=== PATIENT | male | born 1950 | race Native Hawaiian/Other Pacific Islander ===

== ENCOUNTER 2016-10-18 12:39 | Outpatient (CLI) | payer OTHER ==
[~2016-10-18 12:39] MED LIST: AMOX875T8 PO; ASA LO-DOSE81 MG PO; CYCL10TA35 PO; DICL1GEL2 TOP; GABA100C2 PO; GABA300C2 PO; HYDR-2748 PO; HYDR25TA60 PO; LISI20TA11 PO; LORA10TA3 PO; MEDROL DOSEPAK4 MG OR; METO50TA27 PO; MOBIC7.5 M1 PO
[2016-10-18 13:03] LABS: PLATELET COUNT 284 K/uL (142-355)
[2016-10-18 13:30] LABS: POTASSIUM 4.2 mmol/L (3.6-5.2)
== END 2016-10-18 19:09 | disposition home or self-care (01) ==
LOC: RAD 12:39 → LABW 12:39
PROVIDERS: Family Medicine
DX: F41.8 Other specified anxiety disorders (principal); E55.9 Vitamin D deficiency, unspecified; I10 Essential (primary) hypertension; I73.89 Other specified peripheral vascular diseases; K21.9 Gastro-esophageal reflux disease without esophagitis; M25.512 Pain in left shoulder; J44.9 Chronic obstructive pulmonary disease, unspecified; R05 Cough
CPT/HCPCS: 80053; 80061; 81000; 82306; 83735; 84439; 84443; 84550; 85027

== ENCOUNTER 2017-01-13 11:12 | Outpatient (CLI) | payer OTHER ==
[2017-01-13 14:03] LABS: LDL CHOLESTEROL 79.5 mg/dL (0-99*)
== END 2017-01-13 12:15 | disposition home or self-care (01) ==
LOC: LABW 11:12
PROVIDERS: Nurse Practitioner Adult Health
DX: E78.2 Mixed hyperlipidemia (principal); Z79.899 Other long term (current) drug therapy; Z51.81 Encounter for therapeutic drug level monitoring
CPT/HCPCS: 36415; 80061; 80076

== ENCOUNTER 2017-03-09 09:45 | Outpatient (CLI) | payer OTHER ==
[2017-03-09 10:04] LABS: PLATELET COUNT 254 K/uL (142-355)
== END 2017-03-09 19:11 | disposition home or self-care (01) ==
LOC: LABW 09:45
PROVIDERS: Nurse Practitioner Adult Health
DX: Z01.810 Encounter for preprocedural cardiovascular examination (principal); I73.89 Other specified peripheral vascular diseases
CPT/HCPCS: 36415; 80053; 85027

== ENCOUNTER 2017-05-30 08:12 | Outpatient (CLI) | payer OTHER | END 2017-05-30 22:59 | disposition home or self-care (01) | LOC: US 08:12 | DX: I65.29 Occlusion and stenosis of unspecified carotid artery (principal) ==

== ENCOUNTER 2017-08-06 00:01 | Outpatient (CLI) | payer OTHER | END 2017-08-06 00:10 | disposition short-term general hospital (02) | LOC: AMB 00:01 | DX: R55 Syncope and collapse (principal); F10.129 Alcohol abuse with intoxication, unspecified | CPT/HCPCS: A0425; A0427 ==

== ENCOUNTER 2017-08-06 00:15 | Emergency (ER) | payer OTHER ==
[~2017-08-06] VITALS: Ht 180.3 cm; Wt 88.9 kg
[2017-08-06 00:31] LABS: PLATELET COUNT 398 K/uL (142-355)
[2017-08-06 00:38] LABS: POTASSIUM 3.3 mmol/L (3.6-5.2); SODIUM 139 mmol/L (136-145)
[2017-08-06 02:35] VITALS: BP 138/65; TEMP 97.6
== END 2017-08-06 02:36 | disposition home or self-care (01) ==
LOC: ED 00:15
DX: F10.129 Alcohol abuse with intoxication, unspecified (principal)
CPT/HCPCS: 36415; 80053; 80320; 81000; 82550; 84484; 85027; 96360; 99284

== ENCOUNTER 2017-09-08 09:56 | Emergency (ER) | payer OTHER ==
[~2017-09-08] VITALS: Ht 180.3 cm; Wt 86.2 kg
[2017-09-08 10:13] VITALS: TEMP 99.1
[2017-09-08 11:32] VITALS: BP 142/82
== END 2017-09-08 11:32 | disposition home or self-care (01) ==
LOC: ED 09:56
DX: M62.830 Muscle spasm of back (principal); X50.9XXA Other and unspecified overexertion or strenuous movements or postures, initial encounter; Y92.89 Other specified places as the place of occurrence of the external cause
CPT/HCPCS: 96372; 99283; J1100; J1885

== ENCOUNTER 2017-12-28 09:20 | Emergency (ER) | payer OTHER ==
[~2017-12-28] VITALS: Ht 180.3 cm; Wt 88.9 kg
[2017-12-28 10:11] LABS: PLATELET COUNT 268 K/uL (142-355)
[2017-12-28 10:25] LABS: POTASSIUM 4.6 mmol/L (3.6-5.2); SODIUM 142 mmol/L (136-145)
[2017-12-28 11:07] VITALS: BP 173/92; TEMP 98.4
== END 2017-12-28 11:07 | disposition home or self-care (01) ==
LOC: ED 09:20
DX: R55 Syncope and collapse (principal)
CPT/HCPCS: 80053; 81000; 84484; 85027; 93005; 99283

== ENCOUNTER 2018-01-10 10:04 | Outpatient (CLI) | payer OTHER | END 2018-01-10 21:32 | disposition home or self-care (01) | LOC: RESP 10:04 | DX: R55 Syncope and collapse (principal); I10 Essential (primary) hypertension | CPT/HCPCS: 93225 ==

== ENCOUNTER 2018-02-19 10:08 | Outpatient (CLI) | payer OTHER ==
[2018-02-19 10:31] LABS: PLATELET COUNT 246 K/uL (142-355)
[2018-02-19 11:24] LABS: POTASSIUM 4.5 mmol/L (3.6-5.2)
== END 2018-02-19 19:53 | disposition home or self-care (01) ==
LOC: LABW 10:08
PROVIDERS: Family Medicine
DX: I10 Essential (primary) hypertension (principal); I25.10 Atherosclerotic heart disease of native coronary artery without angina pectoris; I73.9 Peripheral vascular disease, unspecified; N18.9 Chronic kidney disease, unspecified; E55.9 Vitamin D deficiency, unspecified; Z13.1 Encounter for screening for diabetes mellitus; Z79.899 Other long term (current) drug therapy
CPT/HCPCS: 36415; 80053; 80061; 81000; 82306; 83036; 84439; 84443; 85027

== ENCOUNTER 2018-03-09 10:16 | Outpatient (CLI) | payer OTHER | END 2018-03-09 19:48 | disposition home or self-care (01) | LOC: LABW 10:16 | DX: R53.82 Chronic fatigue, unspecified (principal); Z11.59 Encounter for screening for other viral diseases | CPT/HCPCS: 36415; 80074 ==

== ENCOUNTER 2018-06-12 08:37 | Outpatient (CLI) | payer OTHER ==
[~2018-06-12] VITALS: Ht 180.3 cm; Wt 87.5 kg
== END 2018-06-12 19:11 | disposition home or self-care (01) ==
LOC: NM 08:37
DX: I25.10 Atherosclerotic heart disease of native coronary artery without angina pectoris (principal); I42.8 Other cardiomyopathies
CPT/HCPCS: A9500; J2785

== ENCOUNTER 2018-08-10 09:17 | Outpatient (CLI) | payer OTHER | END 2018-08-10 19:48 | disposition home or self-care (01) | LOC: LABW 09:17 | PROVIDERS: Nurse Practitioner Adult Health | DX: E78.2 Mixed hyperlipidemia (principal); Z79.899 Other long term (current) drug therapy | CPT/HCPCS: 36415; 80061; 80076 ==

== ENCOUNTER 2018-09-21 11:56 | Emergency (ER) | payer OTHER ==
[~2018-09-21] VITALS: Ht 180.3 cm; Wt 87.5 kg
[2018-09-21 12:07] VITALS: TEMP 98.7
[2018-09-21 12:40] VITALS: BP 124/66
== END 2018-09-21 12:40 | disposition home or self-care (01) ==
LOC: ED 11:56
DX: S60.455A Superficial foreign body of left ring finger, initial encounter (principal); L03.012 Cellulitis of left finger
CPT/HCPCS: 99282

== ENCOUNTER 2018-12-06 09:10 | Outpatient (CLI) | payer OTHER ==
[2018-12-06 09:26] LABS: PLATELET COUNT 236 K/uL (142-355)
[2018-12-06 09:51] LABS: POTASSIUM 4.1 mmol/L (3.6-5.2)
== END 2018-12-06 23:50 | disposition home or self-care (01) ==
LOC: LABW 09:10
PROVIDERS: Family Medicine
DX: E78.2 Mixed hyperlipidemia (principal); Z79.899 Other long term (current) drug therapy; I12.9 Hypertensive chronic kidney disease with stage 1 through stage 4 chronic kidney disease, or unspecified chronic kidney disease; N18.9 Chronic kidney disease, unspecified; I73.89 Other specified peripheral vascular diseases; G89.29 Other chronic pain; K21.9 Gastro-esophageal reflux disease without esophagitis; F41.8 Other specified anxiety disorders; J44.9 Chronic obstructive pulmonary disease, unspecified; E55.9 Vitamin D deficiency, unspecified; R35.1 Nocturia
CPT/HCPCS: 36415; 80053; 80061; 80076; 81000; 82306; 83735; 84154; 84439; 84443; 84550; 85027

== ENCOUNTER 2019-06-10 09:12 | Outpatient (CLI) | payer OTHER | END 2019-06-10 19:04 | disposition home or self-care (01) | LOC: LABW 09:12 | PROVIDERS: Nurse Practitioner Adult Health | DX: E78.2 Mixed hyperlipidemia (principal); Z79.899 Other long term (current) drug therapy | CPT/HCPCS: 36415; 80061; 80076 ==

== ENCOUNTER 2020-06-06 10:32 | Outpatient (CLI) | payer OTHER | END 2020-06-06 19:33 | disposition home or self-care (01) | LOC: RAD 10:32 | PROVIDERS: ATTEND Family Medicine | DX: R05 Cough (principal); J44.9 Chronic obstructive pulmonary disease, unspecified ==

== ENCOUNTER 2020-06-17 08:33 | Outpatient (CLI) | payer OTHER | END 2020-06-17 21:39 | disposition home or self-care (01) | LOC: CT 08:33 | PROVIDERS: ATTEND Family Medicine | DX: R05 Cough (principal); R93.89 Abnormal findings on diagnostic imaging of other specified body structures; J44.9 Chronic obstructive pulmonary disease, unspecified | CPT/HCPCS: 36415; 82565; 84520; Q9963 ==

== ENCOUNTER 2020-10-09 09:19 | Outpatient (CLI) | payer OTHER | END 2020-10-09 19:04 | disposition home or self-care (01) | LOC: US 09:19 | PROVIDERS: ATTEND Family Medicine | DX: Z87.891 Personal history of nicotine dependence (principal); I10 Essential (primary) hypertension; I73.9 Peripheral vascular disease, unspecified; D75.1 Secondary polycythemia; Z13.6 Encounter for screening for cardiovascular disorders ==

== ENCOUNTER 2020-11-08 14:35 | Emergency (ER) | payer OTHER ==
[~2020-11-08] VITALS: Ht 180.3 cm; Wt 87.5 kg
[2020-11-08 14:51] VITALS: BP 97/53; TEMP 98.2
== END 2020-11-08 15:45 | disposition home or self-care (01) ==
LOC: ED 14:35
DX: M70.72 Other bursitis of hip, left hip (principal)
CPT/HCPCS: 96372; 99283; J1885; J2930

== ENCOUNTER 2021-06-29 08:19 | Outpatient (CLI) | payer OTHER ==
[~2021-06-29] VITALS: Ht 180.3 cm; Wt 86.6 kg
== END 2021-06-29 19:02 | disposition home or self-care (01) ==
LOC: NM 08:19
PROVIDERS: ATTEND Specialist
DX: I25.10 Atherosclerotic heart disease of native coronary artery without angina pectoris (principal); I25.5 Ischemic cardiomyopathy; I10 Essential (primary) hypertension
CPT/HCPCS: A9500; J2785

== ENCOUNTER 2021-08-04 12:46 | Outpatient (CLI) | payer OTHER | END 2021-08-04 19:12 | disposition home or self-care (01) | LOC: RAD 12:46 | PROVIDERS: ATTEND Family Medicine | DX: M25.562 Pain in left knee (principal) ==

== ENCOUNTER 2021-11-27 12:16 | Outpatient (CLI) | payer OTHER | END 2021-11-27 19:47 | disposition home or self-care (01) | LOC: RAD 12:16 | PROVIDERS: ATTEND Family Medicine | DX: M54.59 Other low back pain (principal); M53.3 Sacrococcygeal disorders, not elsewhere classified ==

== ENCOUNTER 2021-12-14 08:56 | Outpatient (CLI) | payer OTHER | END 2021-12-14 21:33 | disposition home or self-care (01) | LOC: CT 08:56 | PROVIDERS: ATTEND Family Medicine | DX: J44.9 Chronic obstructive pulmonary disease, unspecified (principal); Z87.891 Personal history of nicotine dependence; Z09 Encounter for follow-up examination after completed treatment for conditions other than malignant neoplasm ==

== ENCOUNTER 2022-09-09 09:11 | Outpatient (CLI) | payer OTHER ==
[2022-09-09 10:26] LABS: POTASSIUM 4.7 mmol/L (3.6-5.2)
== END 2022-09-09 19:11 | disposition home or self-care (01) ==
LOC: LABW 09:11
PROVIDERS: ATTEND Family Medicine
DX: I12.9 Hypertensive chronic kidney disease with stage 1 through stage 4 chronic kidney disease, or unspecified chronic kidney disease (principal); N18.31 Chronic kidney disease, stage 3a; R73.03 Prediabetes; R35.1 Nocturia
CPT/HCPCS: 36415; 80053; 84153; 84550

== ENCOUNTER 2022-12-16 10:32 | Outpatient (CLI) | payer OTHER | END 2022-12-16 20:26 | disposition home or self-care (01) | LOC: US 10:32 | PROVIDERS: ATTEND Family Medicine | DX: I73.9 Peripheral vascular disease, unspecified (principal); I25.10 Atherosclerotic heart disease of native coronary artery without angina pectoris ==

== ENCOUNTER 2023-06-14 09:54 | Outpatient (CLI) | payer OTHER | END 2023-06-14 23:59 | disposition home or self-care (01) | LOC: RESP 09:54 | PROVIDERS: ATTEND Nurse Practitioner | DX: I25.10 Atherosclerotic heart disease of native coronary artery without angina pectoris (principal); I25.5 Ischemic cardiomyopathy; I10 Essential (primary) hypertension; E78.2 Mixed hyperlipidemia ==